=== PATIENT | female | born 2000 | race Caucasian/White ===

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

== ENCOUNTER 2018-11-06 18:29 | Emergency (ER) | payer BC ==
--- NOTE | 2018-11-06 18:57 | EDPHY ---
H & P Stated Complaint: FALL FACE FIRST INTO WALL SAT,?LOC, HEADACHE, LIGHT SENS, CURRENT EAR INF Source: Patient Exam Limitations: No limitations - Personal History LMP (Females 10-55): Extended Cycle BCP/Inj Current Tetanus/Diphtheria Vaccine: Yes - Medical/Surgical History Hx Asthma: No Hx Chronic Respiratory Disease: No Hx Diabetes: No Hx Cardiac Disease: No Hx Renal Disease: No Hx Cirrhosis: No Hx Alcoholism: No Hx HIV/AIDS: No Hx Splenectomy or Spleen Trauma: No Other PMH: Concussion, UMB HERNIA, DEPRESSION/ANXIETY, ADHD - Social History Smoking Status: Never smoked Time Seen by Provider: 11/06/18 18:57 HPI/ROS: HPI: This is a 18-year-old female who presents with Chief Complaint: FALL FACE FIRST INTO WALL SAT,?LOC, HEADACHE, LIGHT SENS, CURRENT EAR INF Location: Head Quality: Injury Duration: 48 hr ago Signs and Symptoms: No bleeding, no radiation, no numbness, no weakness, no tingling, no incontinence, no decreased range of motion, no swelling, + pain, no fever, + nausea, + vomiting, + LOC, + headache, + photophobia, no noise sensitivity Timing: Acute Severity: Moderate Context: Patient is a student at [employer], was drinking Tuesday night, when her friend was helping her down the stairs and she tripped falling forward hitting the front portion of her head on a brick wall. She questions loss of consciousness and has amnesia surrounding the actual events. She promote nausea and vomiting that evening. She reports that position changes increase her nausea. Patient reports that she had difficulty reading and tracking today and the increased her headache on the frontal portion. She notes that she has bruises on both sides of her frontal head. Denies neck pain. History of 3 concussions in the past. She reports that "this concussion feels worse than the others."Friend at bedside witnessed fall. Modifying Factors: None Comment: ROS: A comprehensive 10 system review of systems is otherwise negative aside from elements mentioned in the history of present illness. MEDICAL/SURGICAL/SOCIAL HISTORY: Medical history: Generally healthy. Does not take any regular medications. Surgical history: Denies Social history: Student at [employer]. CONSTITUTIONAL: Well-developed, well-nourished, young adult white female, awake and alert, no obvious distress HEENT: 2 small contusions measuring approximately 8 mm dark in color on lateral portions of both side of her forehead; and normocephalic, PERRL, EOMI. no globe entrapment, no raccoon eyes. no Marie signs.Tympanic membranes effusion. No tympanic membrane rupture. Nares patent; no septal hematoma. Oropharynx clear, no exudate and moist pink mucosa. No malocclusion. no dental trauma. Airway patent. No lymphadenopathy. NECK: supple, no midline tenderness, flexion 45 degrees, extension 45 degrees, right and left lateral flexion 45 degrees. No meningismus. Cardiovascular: Normal S1/S2, regular rate, regular rhythm, without murmur rub or gallop. PULMONARY/CHEST: Symmetrical and nontender. no crepitus. Clear to auscultation bilaterally. Good air movement. No accessory muscle usage. ABDOMEN: Soft, nondistended, nontender, no ecchymosis, no rebound, no guarding , no peritoneal signs, no masses or organomegaly. No CVAT. EXTREMITIES: 2/2 pulses, no deformities, no clubbing, no cyanosis or edema. NEUROLOGICAL: no focal neuro deficits. GCS 15. Cranial nerves 2-12 grossly intact. Speech clear. Ambulatory without deficits. SKIN: Warm and dry, no erythema. no rash. Good capillary refill. (Laurie Roa) Constitutional: Initial Vital Signs Temperature (C) 36.7 C 11/06/18 18:43 Heart Rate 86 11/06/18 18:43 Respiratory Rate 18 11/06/18 18:43 Blood Pressure 128/72 H 11/06/18 18:43 O2 Sat (%) 98 11/06/18 18:43 O2 Delivery Mode Room Air Allergies/Adverse Reactions: No Known Allergies Allergy (Unverified 11/06/18 18:43) Home Medications: Medication Instructions Recorded Adderall 10 MG (*) 07/11/17 Wellbutrin 100mg (*) 07/11/17 Amoxicillin/Clavulanate Pot 875 mg PO BID #20 tab 11/06/18 [Augmentin 875 MG TAB (*)] Daysee 0.15-0.03-0.01 mg Tab 11/06/18 Ondansetron Odt [Zofran Odt 4 mg 4 mg PO Q4 PRN #12 tab 11/06/18 (*)] Medical Decision Making - Diagnostics Imaging Results: Imaging Impressions Head CT 11/06/18 19:06 Impression: 1. No significant intracranial abnormality seen. 2. Arachnoid cyst versus prominent cisterna magna stable in appearance posterior fossa. 3. Maxillary, ethmoid, and sphenoid sinus disease has developed. 4. Soft tissue contusion over the left frontal bone. If symptoms worsen, additional imaging may be necessary. Findings discussed with Laurie Roa PAC at 19:32 hour, 11/06/2018. ED Course/Re-evaluation: Vital signs reviewed and stable upon arrival. Based on nexus protocol of LOC, amnesia, vomiting; head CT ordered Patient given Zofran 4 mg and Percocet 1935: Called by Dr. Serra, head CT scan shows no acute intracranial process. Left posterior arachnoid cyst noted and paranasal sinus disease. Patient will be given a prescription for Augmentin and Zofran. Discussed concussion precautions and referral to the concussion Clinic No signs of neurovascular compromise/tenting of skin/compartment syndrome/ extremities and joints examined above and below area of concern and are neurovascularly intact. This patient was seen under the supervision of my secondary supervising physician. I evaluated care for this patient independently. Discussed this patient with Dr. Levine who did not see the patient. (Laurie Roa) The patient was evaluated and managed by the physician offset assistant press operator. I have reviewed this chart and I agree with the findings and plan of care as documented , as indicated by my signature. I am the secondary supervising physician. ( Aylin Levine) Differential Diagnosis: Head injury including but not limited to concussion, skull fracture, intraparenchymal contusion, subarachnoid, subdural and epidural hematoma. (Laurie Roa) - Data Points Medications Given: Discontinued Medications Ondansetron HCl (Zofran Odt) 4 mg PO EDNOW ONE Stop: 11/06/18 19:07 Last Admin: 11/06/18 19:14 Dose: 4 mg Oxycodone/Acetaminophen (Percocet 5/325) 1 tab PO EDNOW ONE Stop: 11/06/18 19:07 Last Admin: 11/06/18 19:15 Dose: 1 tab Departure - Departure Disposition: Home, Routine, Self-Care Clinical Impression: Head injury, closed, with concussion, Sinusitis, Arachnoid cyst Condition: Good Instructions: Sinusitis (ED), Concussion (ED), Head Injury (ED), Cyst (ED) Additional Instructions: You sustained a closed head injury and concussion and it is recommended that you observe concussion precautions. Please do not participate in any contact sports or moderate and strenuous activity until all symptoms have resolved or cleared by PCP/Concussion Clinic. Take Tylenol 650 mg every 4 hours and/or Ibuprofen 600 mg every 8 hours with food as needed for pain/headache. Take Zofran every 4-6 hours as needed for nausea, vomiting. Consume a minimum of 8-10 glasses of water or electrolyte fluid replacement drinks that include Gatorade, Powerade, Pedialyte. Please follow-up with primary care provider/student health clinic in 5-7 days. If symptoms last longer than 1 week, please follow-up with Dr. Smith in the concussion Clinic. Return to the ER immediately if you have progressive headaches, neurologic deficits, gait abnormality, visual disturbance, slurred speech, or any other symptom that concerns you. Stop taking amoxicillin and start taking Augmentin. Use [id number] Flonase or Rhinocort for the next 7-10 days. Referrals: [facility] ,. [Clinic] - As per Instructions Elizabeth Smith MD [Medical Doctor] - As per Instructions Stand Alone Forms: School Excuse Prescriptions: Amoxicillin/Clavulanate Pot [Augmentin 875 MG TAB (*)] 875 mg PO BID #20 tab Ondansetron Odt [Zofran Odt 4 mg (*)] 4 mg PO Q4 PRN #12 tab PRN Reason: Nausea/Vomiting, Use 1st
[2018-11-06] MEDS ORDERED: OXYCODONE/APAP 5/325 TAB PO ONE (19:06)
[2018-11-06] MEDS ORDERED: ONDANSETRON DISINTEGRATING 4 MG TAB PO ONE (19:06)
[2018-11-06 19:57] VITALS: BP 144/72
== END 2018-11-06 19:57 | disposition home or self-care (01) ==
DX: S06.0X0A Concussion without loss of consciousness, initial encounter (principal); J32.9 Chronic sinusitis, unspecified; G93.0 Cerebral cysts; W19.XXXA Unspecified fall, initial encounter